=== PATIENT | male | born 1980 | race Caucasian/White ===

== ENCOUNTER 2022-07-07 09:02 | Emergency (ER) | payer OTHER, MEDICAID, SELFPAY ==
[2022-07-07 09:16] VITALS: BP 125/63; PULSE 69; RESP 16; TEMP 36.8; O2SAT 94
[2022-07-07 09:47] VITALS: BP 125/63; PULSE 71; RESP 19; TEMP 36.4; O2SAT 95; BMI 35.5
--- NOTE | 2022-07-07 09:47 | ED.SKABFB ---
HPI - Skin/Abscess/Foreign Bdy General Chief complaint: Skin/Abscess/Foreign Body Stated complaint: LEFT BIG TOENAIL COMING OFF Time Seen by Provider: 07/07/22 09:34 History of Present Illness HPI narrative: Patient is a 42-year-old male who presents with right toenail pain. He says he fell down the stairs last night and is big toenail is almost rubbed off. He has lot of pain. No other injuries. Review of Systems Review of Systems Narrative: GENERAL: Denies chills,fever HEENT: Denies throat pain RESPIRATORY: Denies dyspnea, cough, wheezing CARDIOVASCULAR: Denies chest pain, palpitations GASTROINTESTINAL: Denies nausea, vomiting MUSCULOSKELETAL: See HPI SKIN: No rash, no laceration, no pruritus NEUROLOGIC: Denies weakness, dizziness, headache, numbness 8 point review of systems is negative except for those stated above and HPI Patient History Social History Smoking Status: Current every day smoker Exam Initial Vital Signs Initial Vital Signs: Vital Signs Temperature 98.3 F 07/07/22 09:16 Pulse Rate 69 07/07/22 09:16 Respiratory Rate 16 07/07/22 09:16 Blood Pressure 125/63 07/07/22 09:16 Pulse Oximetry 94 07/07/22 09:16 Oxygen Delivery Method 07/07/22 09:16 GENERAL: Well-appearing, well-nourished and in no acute distress. CARDIOVASCULAR: peripheral pulses in tact, cap refill <2 sec RESPIRATORY: No respiratory distress, speaks in full sentences without difficulty EXTREMITIES: Normal range of motion, no clubbing or edema. Neurovascularly intact NEUROLOGICAL: Cranial nerves II through XII grossly intact. Normal gait and speech. SKIN: Warm, dry, no petechiae, no rashes or lesions. Right great toenail is bent backwards to the cuticle very sensitive to to Procedures Nerve Block Nerve Block 1: Local Anesthetic: lidocaine 1% Amount of anesthesia used (mL): 2 Side: right Nerve Blocks: digital Procedure Successful: Yes Course Orders Ordered: Discontinued Medications Lidocaine HCl (Lidocaine 1% (Pf)) 2 ml SUBCUT NOW ONE Stop: 07/07/22 09:54 Last Admin: 07/07/22 10:53 Dose: 2 ml Documented By: CTS Vital Signs Vital signs: Vital Signs - 8 hr 07/07/22 09:16 07/07/22 09:47 Temperature 98.3 F 97.6 F Pulse Rate 69 71 Respiratory Rate 16 19 Blood Pressure 125/63 125/63 Pulse Oximetry 94 95 Oxygen Delivery Method Room Air Room Air MDM - Skin/Abscess/Foreign Bdy MDM Narrative Medical decision making narrative: Patient is ambulatory and able to walk. His toenails obviously bent backwards all the way to the cuticle. There is a digital block cleaned and dressing is placed of the toenail does not get stuck. It was not completely removed, will need something in the cuticle place anyway. Discharge Plan Departure Patient Disposition: Home Clinical Impression: Avulsed toenail Instructions: DI for Ingrown Toenail Removal Activity Restrictions/Additional Instructions: *You have been diagnosed with right great toenail avulsed *What to do: Your toenail is going to fall off. Keep it clean and dry watch out for redness and infection *Continue to take medications as directed *Follow up with your primary care provider in 2-3 days or call [phone] *Return to ER if you should have redness swelling pain infected or any new, worsening or concerning symptoms Visit Report Forms: Patient Portal/API
[2022-07-07] MEDS: LIDOCAINE 1% (PF) 2 ML SUBCUT (10:53)
--- NOTE | 2022-07-07 10:59 | PC.NURSE ---
Assessed and treated by Dr Gunn without RN involvement
== END 2022-07-07 11:00 | disposition home or self-care (01) ==
PROVIDERS: Emergency Provider Emergency Medicine
DX: S91.201A Unspecified open wound of right great toe with damage to nail, initial encounter (principal)
CPT/HCPCS: 64450; 99281; 99283